=== PATIENT | female | born 1985 | race Caucasian/White ===

== ENCOUNTER 2020-01-21 12:01 | Outpatient (CLI) | payer OTHER, SELFPAY ==
[2020-01-21 12:26] LABS: Mean Corpuscular HGB Conc 33.3 g/dl (32-36); Mean Corpuscular Hemoglobin 31.8 pg (26-34); Mean Corpuscular Volume 95.3 fl (80-100); Mean Platelet Volume 10.4 fl (7.4-10.4); Platelet Count Result 228 k/mm3 (150-375); Red Blood Count 4.72 M/mm3 (4.2-5.4); White Blood Count 7.4 K/mm3 (4.5-10.0)
== END 2020-01-21 12:02 | disposition home or self-care (01) ==
PROVIDERS: Visit Provider Anesthesiology
DX: Z30.2 Encounter for sterilization (principal)
CPT/HCPCS: 36415; 85027; 86850; 86900; 86901

== ENCOUNTER 2020-01-24 00:46 | Day surgery (SDC) | payer OTHER, SELFPAY ==
[2020-01-14 09:19] VITALS: BMI 34.5
[2020-01-24] VITALS (8 sets, daily range): BP systolic 102–149; BP diastolic 50–85; PULSE 66–121; RESP 13–20; TEMP 36.2–36.5; O2SAT 100; BMI 35.4
--- NOTE | 2020-01-24 08:50 | P.PNAN_ITS ---
Anes - Initial Pre Proc Eval Procedure: Operation Date: 01/24/20 12:00 Proposed Procedures p Laparoscopic Bilateral Salpingectomy - David Collins MD Date/Time: 01/24/20 08:50 Surgeon: David Collins MD Pre Op Diagnosis: desires sterilization Patient Data Age: 34 Gender: F Height: 1.6 m Weight: 88.45 kg Allergies Allergy/AdvReac Type Severity Reaction Status Date / Time No Known Allergies Allergy Mild Unverified 01/24/20 10:31 Patient hx anesthesia problems: none Family hx anesthesia problems: none [facility] Past Medical History Medical History (Updated 01/24/20 @ 11:17 by Frantz Marrero MD) Obesity Tobacco abuse Social History Social History (Updated 01/14/20 @ 09:26 by Estela Buchanan RN) Tobacco type: cigarettes Alcohol intake: current Alcohol use details: socially Substance use: never Living arrangements: with family Gender identity (if verbalized by the patient): Female Spiritual care concerns: No Agree to blood products: Yes Anes - Eval Final PreProcedure Day of Procedure 01/24/20 08:50 Patient weight: obese Heart: regular rate and rhythm Lungs: clear to auscultation and normal air movement Airway: Mallampati scale class II Neurological: alert and oriented Last oral intake: >/= 8 hours ASA classification: II Emergent: no Anesthetic plan: proceed Anesthesia type and monitoring: general ETT Informed Consent: The patient's anesthetic plan and its attendant risks and benefits were discussed with the patient/family/POA. Questions were solicited and answers provided to the satisfaction of the patient/family/POA.
--- NOTE | 2020-01-24 10:23 | PM.HPGS ---
History of Present Illness History of Present Illness Consent: Risks, benefits, and alternatives have been discussed and questions answered. Patient agrees to proceed with procedure. Chief complaint: desires sterilization Narrative: Radha Serrano is a 34 year old female who desires permanent sterilization. Pt has had IUD in the past and would like to have bilateral tubal ligation. Review of Systems Cardiovascular: Cardiovascular: Denies chest pain, Denies leg edema, Denies palpitations, Denies dyspnea and Denies dyspnea on exertion Respiratory: Respiratory: Denies cough, Denies dyspnea and Denies dyspnea on exertion Gastrointestinal: Gastrointestinal: Denies abdominal pain, Denies constipation, Denies diarrhea, Denies nausea and Denies vomiting Genitourinary: Genitourinary: Denies hematuria, Denies urinary frequency, Denies dysuria, Denies pelvic pain, Denies urinary incontinence and Denies vaginal discharge Neurologic: Reports system reviewed and no additional complaints, except as documented Psychiatric: Psychiatric: Reports no additional psychiatric complaints Endocrine: Endocrine: Denies palpitations [facility] Past Medical History Medical History (Updated 01/24/20 @ 10:25 by David Collins MD) Obesity Social History Social History (Updated 01/14/20 @ 09:26 by Estela Buchanan RN) Tobacco type: cigarettes Alcohol intake: current Alcohol use details: socially Substance use: never Living arrangements: with family Gender identity (if verbalized by the patient): Female Spiritual care concerns: No Agree to blood products: Yes Meds Home Medications and Allergies Allergies Allergy/AdvReac Type Severity Reaction Status Date / Time No Known Allergies Allergy Mild Unverified 02/08/19 06:58 Exam Const: General: no acute distress Eyes: EOM: EOMs intact bilaterally Neck: Neck: supple Thyroid: thyroid normal Chest: Breast/axilla inspection: normal inspection of the breasts Breast/axilla palpation: normal palpation of the breasts, normal palpation of the axillae and no axillary lymphadenopathy Resp: Effort & Inspection: normal respiratory effort Auscultation: clear to auscultation bilaterally Cardio: Rate: regular rate Rhythm: regular rhythm GI: Inspection: non-distended GI Palp: Yes Soft to palpation, No Tenderness to palpation present (GI) and No Guarding due to palpation present (GI) Auscultation: normal bowel sounds : General: No bladder normal to palpation External Female Exam: normal external appearance Speculum Exam - Vagina: normal vaginal discharge and No vaginal bleeding Speculum Exam - Cervix: nontender Bimanual exam- vagina & uterus: No bladder normal to palpation and No Cervical tenderness present OB/external & speculum: No vaginal bleeding Skin: General skin exam: normal color and no rashes or lesions noted Neuro: Cognition (Neuro): normal cognition Speech: normal speech Extrem: General: normal to inspection and no edema Psych: Mental Status: mental status grossly normal Affect: normal affect Assessment and Plan Assessment and plan (1) Encounter for sterilization: Code(s): Z30.2 - Encounter for sterilization Status: Acute Assessment and Plan: The risks, benefits and alternatives of sterilization were discussed with the patient, including but not limited to infection, allergic reaction, disfiguring scar, severe loss of blood, loss of function of any limb or organ, paralysis, paraplegia or quadroplegia, brain damage, cardiac arrest, , thrombosis, failure to become sterile, ectopic , injury to bowel, bladder or ureter, fistula, injury to blood vessels, need for colostomy or second operation, need for transfusion with risk of exposure to HIV or hepatitis, embolism, herniation at incision site, need for conversion of preferred type of sterilization to another type, possible need for laparotomy to complete the surgery or
[2020-01-24] MEDS: LACTATED RINGERS 1,000 ML 30 ML IV CONT (11:37)
--- NOTE | 2020-01-24 12:32 | PM.PROC ---
Procedure Note - Detailed Date of procedure: 01/24/20 Pre-op diagnosis: desires sterilization Post-op diagnosis: same Procedure performed: laparoscopic bilateral salpingectomy Description of procedure: After the patient was appropriately consented she was taken to the operating room where she was transferred to the table in a dorsal supine position. General anesthesia was then induced with endotracheal intubation. The patient was transferred to a dorsal lithotomy position using adjustable Yellow fin stirrups. The patient was prepped and draped. A transurethral menezes catheter was placed. A sterile speculum was placed to better visualized the cervix. The anterior lip of the cervix was grasped with single-tooth tenaculum. An acorn uterine manipulator was placed. Gloves were changed and attention was turned to the abdomen. Lidocaine was injected subumbilically and a 1cm incision made here. A 5 mm optical trocar was then placed with direct camera visualization of the abdominal layers during placement. The trocar stylet was removed and the camera was used to verify intra-abdominal placement. CO2 insufflation was then connected and the abdomen was then insufflated with approximately 2-3L of CO2 establishing a pneumoperitoneum. The patient was placed in Trendelenburg position. We subsequently placed two laparoscopic 5mm trocars 10cm lateral to the umbilicus at a 30 degree caudal angle towards the ipsilateral ASIS. We evaluated the pelvis with no abnormal findings. The Left fallopian tube was then grasped at the fimbriae and divided from the ipsilateral ovary and uterus via the Ligasure device. Hemostasis was identified. The entire fallopian tube was removed from the abdomen through the 5mm laparoscopic port under direct visualization. The above procedure was repeated on the Right fallopian tube. Hemostasis was reidentified and we proceeded with closure. All port-site skin incisions were reapproximated with 4-0 Vicryl in a subcuticular fashion. Dermabond was placed. The patient tolerated the procedure well. There were no antibiotics given for antimicrobial prophylaxis. Sponge, needle and instrument counts were correct x 2 and the patient was taken to recovery in stable condition. Anesthesia: GETA Surgeon: David Collins MD Estimated blood loss (mL): 5 Urine output (mL): 250 Drains: No Packing: No Pathology: yes (bilateral fallopian tubes) Complications: No immediate complications Condition: stable Disposition: PACU
[2020-01-24] MEDS: LIDO 1%/EPINEPHRINE 1:100,000 20 ML VIAL INFILTRATE (12:35)
[2020-01-24] MEDS: HYDROMORPHONE HCL 1 MG/ML INJ 0.25 MG IV PUSH ×2 (13:02→13:06)
== END 2020-01-24 14:50 | disposition home or self-care (01) ==
PROVIDERS: Visit Provider Student in an Organized Health Care Education/Training Program
PROC: (CPT 49320; principal; 2020-01-24 12:00)
DX: Z30.2 Encounter for sterilization (principal); F17.210 Nicotine dependence, cigarettes, uncomplicated; E66.9 Obesity, unspecified; Z68.35 Body mass index [BMI] 35.0-35.9, adult
CPT/HCPCS: 58661; 88302; A9270; J0330; J1100; J1170; J2250; J2405; J2704; J3010; J7030; J7120

== ENCOUNTER 2020-03-27 08:44 | Emergency (ER) | payer OTHER, SELFPAY ==
[2020-03-27 09:07] VITALS: BP 127/76; PULSE 88; RESP 16; TEMP 37.1; O2SAT 99
--- NOTE | 2020-03-27 09:25 | ED.URI ---
HPI - URI/Sore Throat General Chief Complaint: Upper Respiratory Infection Stated Complaint: Cold/Flu Symptoms Time Seen by Provider: 03/27/20 09:10 Source: patient and RN notes reviewed Mode of arrival: ambulatory Limitations: no limitations History of Present Illness HPI Narrative: Patient presents today complaining of a sore throat, body aches, congestion, subjective fever and sweats since last night. She also reports a mild nausea cough. She currently rates her pain 4/10 and describes the pain as sharp. She has taken no medication for symptoms prior to arrival. No recent antibiotic use. MD elicited complaint: sore throat Related Data Allergies Allergy/AdvReac Type Severity Reaction Status Date / Time No Known Allergies Allergy Mild Unverified 01/24/20 10:31 Review of Systems Review of Systems: Narrative: CONSTITUTIONAL: Denies chills, or sweats.+ Subjective fever, body aches EYES: Denies visual changes, redness, or discharge. ENT: Denies rhinorrhea, or otalgia.+ Sore throat, congestion CARDIOVASCULAR: Denies chest pain, palpitations, or edema. RESPIRATORY: Denies dyspnea.+ Cough GASTROINTESTINAL: Denies abdominal pain, vomiting, or diarrhea.+ Nausea GENITOURINARY: Denies dysuria or hematuria. SKIN: Denies rash, itching, or wounds. MUSCULOSKELETAL: Denies back pain, joint pain, or myalgia. NEUROLOGIC: Denies headache, numbness, tingling, or weakness. PSYCH: Denies depression or anxiety. [facility] Past Medical History Medical History (Updated 03/27/20 @ 09:30 by Gayla Bui, [facility], ) Obesity Tobacco abuse Social History Social History (Updated 01/14/20 @ 09:26 by Estela Buchanan RN) Tobacco type: cigarettes Alcohol intake: current Substance use: never Gender identity (if verbalized by the patient): Female Spiritual care concerns: No Agree to blood products: Yes Comments At time of signature, I have reviewed and agree with nursing past medical, surgical, social and family history unless otherwise noted. Please see nursing chart for further information. There is no relevant family history pertinent to the presenting complaint Exam Narrative: Exam Narrative: GENERAL: Well-appearing, well-nourished, and in no acute distress. HEAD: Normocephalic, atraumatic. EYES: EOMI. No redness or drainage. Conjunctivae normal. ENT: Mucous membranes pink and moist. Nares clear. No rhinorrhea. TMs normal bilaterally. Throat severely erythematous and mildly edematous with white exudate bilaterally.. Uvula midline. NECK: Normal AROM. Supple. Right anterior cervical chain lymphadenopathy. CHEST: No respiratory distress. Clear to auscultation. HEART: Regular rate and rhythm. No murmur appreciated. Normal peripheral pulses. EXTREMITIES: Normal range of motion. No edema. SKIN: Warm, dry, no rash. Capillary refill normal. Normal skin turgor. NEURO: No focal deficits. Alert and oriented x3. Gait steady. PSYCH: Normal affect. No signs of depression or anxiety. Course Vital Signs Vital signs: Vital Signs Temperature 98.7 F 03/27/20 09:07 Pulse Rate 88 03/27/20 09:07 Respiratory Rate 16 03/27/20 09:07 Blood Pressure 127/76 03/27/20 09:07 Pulse Oximetry 99 03/27/20 09:07 Temperature 98.7 F 03/27/20 09:07 Pulse Rate 88 03/27/20 09:07 Respiratory Rate 16 03/27/20 09:07 Blood Pressure 127/76 03/27/20 09:07 Pulse Oximetry 99 03/27/20 09:07 Reviewed. Pt has been instructed to follow up with her PCP regarding her elevated blood pressure today. MDM - URI/Sore Throat Differential Diagnosis Differential diagnosis: Likely upper respiratory infection, otitis media, sinusitis, viral infection, pharyngitis and other (Strep throat) Lab Data Attestation: I reviewed the patient's lab results. Labs: Strep Screen Positive Group A Strep *(Reference Range: Negative)* Critical Care Time Critical Care Time Critical Care Time: No Discharge Plan
== END 2020-03-27 09:40 | disposition home or self-care (01) ==
PROVIDERS: Emergency Provider Nurse Practitioner
DX: J02.0 Streptococcal pharyngitis (principal); F17.210 Nicotine dependence, cigarettes, uncomplicated; E66.9 Obesity, unspecified; Z68.35 Body mass index [BMI] 35.0-35.9, adult
CPT/HCPCS: 87880; 99213; G0463

== ENCOUNTER 2024-09-30 11:56 | Emergency (ER) | payer OTHER, SELFPAY ==
--- NOTE | ~2024-09-30 | XR_ITS ---
EXAMINATION: XR chest 2V DATE: 09/30/2024 12:40 INDICATION: Cough and shortness of breath TECHNIQUE: PA and lateral views of the chest were obtained. COMPARISON: None FINDINGS: The lungs are clear with no focal airspace opacities, pulmonary edema, pleural effusion or pneumothor ax. The cardiomediastinal silhouette is normal. Visualized bones and soft tissues are unremarkable. IMPRESSION: 1. Normal chest radiograph. Reviewed, dictated and finalized at location A. [employer] IMPRESSION: 1. Normal chest radiograph.
--- NOTE | 2024-09-30 12:05 | ED_ITS ---
HPI - URI/Sore Throat General Chief Complaint: Upper Respiratory Infection Stated Complaint: SOB Source: patient Mode of arrival: ambulatory Limitations: no limitations History of Present Illness HPI Narrative: Laz is a 38-year-old female patient presenting to the clinic today with complaints of shortness of breath times. MD elicited complaint: sore throat and nasal congestion Related Data Home Medications Medication Instructions Recorded Confirmed lisdexamfetamine 50 mg capsule 50 mg PO DAILY 09/30/24 09/30/24 spironolactone 50 mg tablet 50 mg PO DAILY 09/30/24 09/30/24 Allergies Allergy/AdvReac Type Severity Reaction Status Date / Time amoxicillin Allergy Severe Swelling Verified 09/30/24 12:33 Review of Systems Review of Systems: Pertinent positives per HPI. Patient denies any fever, chills, rash, headache, visual changes, dizziness, chest pain, palpitations, nausea, vomiting, diarrhea, constipation, abdominal pain, or any urinary issues. PMFSH Past Medical History Medical History Obesity Tobacco abuse Social History Social History Tobacco type: cigarettes Alcohol intake: current Alcohol use details: socially Substance use: never Living arrangements: with family Gender identity (if verbalized by the patient): Female Spiritual care concerns: No Agree to blood products: Yes Comments At the time of my signature, I reviewed and agree with the nursing past medical, surgical, social, and family history. There is no relevant family history pertinent to the patient complaint. Exam Narrative: General: Well-developed, well nourished, in no apparent distress Head: Normocephalic, atraumatic Eyes: Pupils equally round and reactive to light bilaterally, EOM intact, sclera and conjunctive clear, no discharge, lids normal Ears: TMs intact and clear, ear canals clear, no drainage, grossly hearing normal. Nose: Nares patent, no discharge, no inflammation, no sinus tenderness. Mouth: Oral pharynx red without lesions or masses, good dentition, MMM. Neck: Supple, trachea midline, no enlargement of anterior or posterior cervical nodes, no thyroid masses or goiter palpable. Cardio: Regular rate and rhythm, s1 and s2 normal, no murmur appreciated. Resp: Clear to auscultation bilaterally, no rhonchi, rales, wheezing or rubs Course Course Emergency Course: Portions of this record may have been created with voice recognition software. Level of Care: Express Care Visit Vital Signs Vital signs: Vital signs reviewed MDM - URI/Sore Throat MDM Narrative Medical decision making narrative: At the time of visit patient is resting comfortably on the exam table. Patient appears to be nontoxic. Labs: COVID, influenza, and strep test performed. All testing was negative. We will send strep for culture. Diagnostics: Chest x-ray was performed and was negative for any sign acute cardiopulmonary process. Plan: Supportive measures were discussed with the patient and they voiced understanding discharge instructions and agrees to treatment plan. Return preca utions reviewed Differential Diagnosis Differential diagnosis: Likely upper respiratory infection, otitis media, sinusitis, viral infection, bronchitis, influenza, pharyngitis and other (COVID) Discharge Plan Discharge Clinical Impression: Viral infection Upper respiratory infection Qualifiers: URI type: unspecified URI Qualified Code(s): J06.9 - Acute upper respiratory infection, unspecified Pharyngitis Qualifiers: Pharyngitis/tonsillitis etiology: unspecified etiology Qualified Code(s): J02.9 - Acute pharyngitis, unspecified Patient Disposition: Home, Self-Care Condition: Stable Instructions: Antibiotic Form, Pharyngitis (ED), Upper Respiratory Infection (ED), Viral Syndrome (ED) Additional Instructions: COVID, influenza, and strep test were all negative in the clinic today. We will send strep for culture if this comes back positive we will contact him place you on antibiotics at that time. Chest x-rays negative for any sign of acute cardiopulmonary process. Take prescription medications only as prescribed-albuterol inhaler and Tessalon Perles. May take DayQuil/NyQuil for cold/flu symptoms Increase fluids and stay well hydrated Tylenol/motrin for pain/fever Flonase and OTC antihistamines as directed Vicks vapor rub to open sinuses Sinus rinses for congestion Cepacol spray, cough drops, throat lozenges, warm tea with honey/lemon, gargle salt water to soothe throat BRAT diet for diarrhea Clear liquids x 24 hours then advance as tolerated for nausea/vomiting Go to the ED if you develop a worsening in your condition- high fever not controlled by Tylenol or Motrin, dehydration, weakness, lethargy, shortness of breath, or chest pain. Follow up with your PCP in 3-5 days if symptoms persist. Prescriptions: New benzonatate 200 mg capsule 200 mg PO TID 7 Days Qty: 21 0RF albuterol sulfate 90 mcg/actuation HFA aerosol inhaler 2 puff inhalation Q4-6H PRN (Reason: shortness of breath or wheezing) 30 Days Qty: 8.5 0RF No Action spironolactone 50 mg tablet 50 mg PO DAILY lisdexamfetamine 50 mg capsule 50 mg PO DAILY Follow-up/Referrals: Angely,PA Rios [Primary Care Provider] - Stand Alone Forms: Work/School Release IP Time of Disposition: 12:49 Quality NIHSS Nursing Documentation ED NIHSS nursing documentation: reviewed/agree
[2024-09-30 12:10] VITALS: BP 113/83; PULSE 90; RESP 16; TEMP 36.9; O2SAT 100
[2024-09-30 12:24] LABS: EDSTREPNEGPOS1 Negative (Negative)
[2024-09-30 12:32] LABS: EDINFLUASCREEN Negative (Negative); EDINFLUBSCREEN Negative (Negative)
[2024-09-30 12:33] LABS: EDCOVIDSCREEN Negative (Negative)
== END 2024-09-30 12:55 | disposition home or self-care (01) ==
PROVIDERS: Emergency Provider Nurse Practitioner Family; PCP Registered Nurse
DX: B34.9 Viral infection, unspecified (principal); J06.9 Acute upper respiratory infection, unspecified; J02.9 Acute pharyngitis, unspecified; Z20.822 Contact with and (suspected) exposure to COVID-19; Z72.0 Tobacco use; E66.9 Obesity, unspecified; Z68.32 Body mass index [BMI] 32.0-32.9, adult
CPT/HCPCS: 71046; 87081; 87426; 87804; 87880; 99213; G0463

== ENCOUNTER 2025-05-17 08:16 | Outpatient (CLI) | payer OTHER, SELFPAY ==
--- NOTE | ~2025-05-17 | MMUS_ITS ---
EXAMINATION: MM diagnostic bro BI w keyanna, US breast BI complete HISTORY: Bilateral breast lumps. Breast pain. TECHNIQUE: Additional 3-D tomosynthesis images of the breasts were performed and synthetic 2-D images were generated. CAD analysis was submitted and interpreted. High resolution bilateral complete breas t ultrasound was performed. COMPARISON: No prior studies for comparison. BREAST PARENCHYMAL COMPOSITION: Dense: The breasts are heterogeneously dense, which may obscure small masses FINDINGS: MAMMOGRAPHIC FINDINGS: There are no suspicious masses, calcifications or architectural distortion in either breast to sugges t malignancy. ULTRASOUND: Complete US of all 4 quadrants of the breast/s and retroareolar region was reviewed. Normal heterogen eous echotexture in both breasts without suspicious masses to suggest malignancy. IMPRESSION: 1. No evidence for malignancy in either breast. 2. Routine yearly screening mammogram at age 40 and regular clinical breast examination are recommend ed. BI-RADS Category 1: Negative Reviewed, dictated and finalized at location A. IMPRESSION: 1. No evidence for malignancy in either breast. 2. Routine yearly screening mammogram at age 40 and regular clinical breast exa mination are recommended. BI-RADS Category 1: Negative
== END 2025-05-17 08:17 | disposition home or self-care (01) ==
PROVIDERS: PCP Registered Nurse; Visit Provider Obstetrics & Gynecology
DX: N64.4 Mastodynia (principal)
CPT/HCPCS: 76641; 77062; 77066; G0279